=== PATIENT | female | born 1945 | race Hispanic/Latino ===

== ENCOUNTER 2017-06-30 07:31 | Outpatient (CLI) | payer MEDICARE ==
--- NOTE | 2017-06-30 08:19 | XRay Report ---
XRAY RIGHT KNEE 4 THREE VIEWS: 06/30/17 CLINICAL: Right knee pain. FINDINGS: No fracture or dislocation. Mild osteoarthritis with narrowing of both medial and lateral joint spaces. Small medial and lateral osteophytes. Tiny patellofemoral osteophytes.No joint effusion.Normal soft tissues. IMPRESSION: Mild osteoarthritis.
== END 2017-06-30 07:32 | disposition home or self-care (01) ==
LOC: SPVIMAG 07:31
PROVIDERS: ATTEND Orthopaedic Surgery Sports Medicine
DX: M17.11 Unilateral primary osteoarthritis, right knee (principal)